=== PATIENT | male | born 2000 | race African-American/Black ===

== ENCOUNTER 2018-06-05 20:52 | Emergency (ER) | payer MEDICAID ==
[~2018-06-05] VITALS: Ht 182.9 cm; Wt 57.0 kg
[2018-06-06] MEDS ORDERED: ONDANSETRON HCL 4MG/2ML INJ IV STA (04:26)
[2018-06-06] MEDS ORDERED: FAMOTIDINE 20MG/2ML VIAL IV STA (04:26)
[2018-06-06] MEDS ORDERED: SODIUM CHLORIDE 0.9% 1,000 ML IV ONE (04:26)
[2018-06-06 04:52] LABS: BASOPHILS % 0.3 % (0.0-2.0); EOSINOPHILS % 2.3 % (0.0-5.0); HEMOGLOBIN. 15.9 g/dL (14.0-18.0); LYMPHOCYTES % 21.5 % (20.0-50.0); MEAN CORPUSCULAR HEMOGLOBIN 27.6 pg (28.0-32.0); MEAN CORPUSCULAR VOLUME 83.4 fL (80.0-94.0); MEAN PLATELET VOLUME 10.4 fl (7.4-10.4); MONOCYTES % 9.7 % (2.0-8.0); NEUTROPHILS % 66.2 % (40.0-76.0); PLATELET 231 x1000/uL (130-400); RED BLOOD CELL COUNT 5.75 mill/uL (4.7-6.1); RED CELL DISTRIBUTION WIDTH 14.3 % (11.6-14.6)
[2018-06-06 04:55] LABS: CHLORIDE 104 mEq/L (98-107)
[2018-06-06 05:48] VITALS: BP 125/80
== END 2018-06-06 05:56 | disposition home or self-care (01) ==
LOC: ER 20:52
DX: K52.9 Noninfective gastroenteritis and colitis, unspecified (principal); R11.2 Nausea with vomiting, unspecified
CPT/HCPCS: 36415; 80053; 83690; 85025; 96361; 96374; 96375; 99283; J2405; J3490; J7030; Z7610

== ENCOUNTER 2022-07-28 12:29 | Emergency (ER) | payer MEDICAID, OTHER ==
[~2022-07-28] VITALS: Ht 185.4 cm; Wt 62.0 kg
[2022-07-28 13:57] LABS: BASOPHILS % 0.2 % (0.0-2.0); EOSINOPHILS % 4.9 % (0.0-5.0); HEMATOCRIT. 46.8 % (42.0-52.0); HEMOGLOBIN. 15.6 g/dL (14.0-18.0); LYMPHOCYTES % 11.8 % (20.0-50.0); MEAN CORPUSCULAR HEMOGLOBIN 27.9 pg (28.0-32.0); MEAN CORPUSCULAR VOLUME 83.4 fL (80.0-94.0); MONOCYTES % 6.8 % (2.0-8.0); NEUTROPHILS % 76.3 % (40.0-76.0); PLATELET 300 x1000/uL (130-400); RED BLOOD CELL COUNT 5.61 mill/uL (4.7-6.1); RED CELL DISTRIBUTION WIDTH 13.9 % (11.6-14.6)
[2022-07-28 14:14] LABS: CHLORIDE 104 mEq/L (98-107)
[2022-07-28 15:45] VITALS: BP 150/90
[2022-07-28] MEDS ORDERED: SIME180C70 MT (16:40)
== END 2022-07-28 17:17 | disposition home or self-care (01) ==
LOC: ER 12:29
DX: R07.89 Other chest pain (principal); H93.19 Tinnitus, unspecified ear; J45.909 Unspecified asthma, uncomplicated
CPT/HCPCS: 36415; 71045; 80053; 84484; 85025; 93005; 99285; Z7610